=== PATIENT | male | born 1950 | race Caucasian/White ===

== ENCOUNTER 2019-01-28 05:43 | Inpatient (IN) ==
[2019-01-20 18:30] LABS: Appearance,Urine CLEAR; Bacteria,Urine 0 /hpf (0); Bilirubin,Urine NEG (NEG); Color,Urine STRAW; Culture Indicated,Urine NO; Glucose,Urine (UA) NEGATIVE (NEG); Ketones,Urine NEG (NEG); Leukocyte Esterase,Urine NEG /uL (NEG); Nitrate,Urine NEG (NEG); Protein,Urine NEG (NEG); Specific Gravity,Urine 1.012 (1.000-1.035); Urine Amorphous Crystals FEW /hpf (0); Urine Blood 0.03 mg/dL (<0.03); Urine RBC 16 /hpf (0-1); Urine Squamous Epithelial Cell 0 /hpf (0-4); Urine WBC 1 /hpf (0-4); Urobilinogen,Urine NEG (NEG)
[2019-01-20 18:37] LABS: Basophils # (Auto) 0 K/mcL (0.0-0.3); Basophils % (Auto) 0.7 % (0.0-2.0); Blood Urea Nitrogen 16 mg/dl (8-23); Calcium 8.9 mg/dl (8.6-10.4); Carbon Dioxide 25 mmol/L (22-30); Chloride 102 mmol/L (96-108); Eosinophils # (Auto) 0.4 K/mcL (0.0-0.7); Eosinophils % (Auto) 6.3 % (0.0-7.0); Glomerular Filtration Rate 55; Glucose 89 mg/dL (70-105); Granulocytes % (Auto) 58.1 % (38.0-78.0); Hematocrit 45.9 % (41.0-55.0); Hemoglobin 15.4 g/dL (13.5-16.5); Lymphocytes # (Auto) 1.6 K/mcL (1.5-4.8); Lymphocytes % (Auto) 26.9 % (15.5-49.0); Mean Cell Volume 92.6 fL (80.0-100.0); Mean Corpuscular HGB Conc 33.6 g/dL (31.0-36.0); Mean Platelet Volume 8.9 fL (7.4-10.4); Monocytes # (Auto) 0.5 K/mcL (0.1-0.9); Platelet Count 290 K/mcL (140-440); RBC 4.96 M/mcL (4.50-5.90)
[2019-01-28] MEDS ORDERED: PREGABALIN 75 MG CAPSULE PO SCH (06:00)
[2019-01-28] MEDS ORDERED: CELECOXIB 200 MG CAPSULE PO SCH (06:00)
[2019-01-28] MEDS ORDERED: oxyCODONE 10 MG TAB.ER.12H PO SCH (06:00)
[2019-01-28] MEDS ORDERED: ceFAZolin 2 GM in DEXTROSE 5% IN WATER 50 ML IV SCH (06:00)
[2019-01-28 07:21] LABS: Estimated Average Glucose(eAG) 103 mg/dL; Hemoglobin A1C 5.2 % HGB (4.0-6.0)
[2019-01-28] MEDS ORDERED: PROPOFOL 200 MG/20 ML VIAL IV ONE (09:45)
[2019-01-28] MEDS ORDERED: ONDANSETRON 4 MG/2 ML VIAL IV ONE (09:45)
[2019-01-28] MEDS ORDERED: DEXAMETHASONE 10 MG/ML VIAL IV ONE (09:45)
[2019-01-28] MEDS ORDERED: SUCCINYLCHOLINE 20 MG/ML ML IV ONE (09:45)
[2019-01-28] MEDS ORDERED: GLYCOPYRROLATE 0.2 MG/ML VIAL IV ONE (09:45)
[2019-01-28] MEDS ORDERED: MIDAZOLAM 5 MG/5 ML VIAL IV ONE (09:45)
[2019-01-28] MEDS ORDERED: LIDOCAINE HCL/PF 100 MG/5 ML SYRINGE IV ONE (09:45)
[2019-01-28] MEDS ORDERED: fentaNYL 250 MCG/5 ML VIAL IV ONE (09:45)
[2019-01-28] MEDS ORDERED: ROPIVACAINE HCL/PF 30 ML VIAL IJ ONE (09:45)
[2019-01-28] MEDS ORDERED: PHENYLEPHRINE 10 MG/ML VIAL IV ONE (09:45)
[2019-01-28] MEDS ORDERED: SUGAMMADEX SODIUM 200 MG/2 ML VIAL IV ONE (09:45)
[2019-01-28] MEDS ORDERED: ROCURONIUM 10 MG/ML ML IV ONE (09:45)
[2019-01-28] MEDS ORDERED: TRANEXAMIC ACID 1,000 MG/10 ML VIAL IV ONE (09:45)
[2019-01-28] MEDS ORDERED: IPRATROPIUM/ALBUTEROL 3 ML AMPUL.NEB NEB PRN (10:41)
[2019-01-28] MEDS ORDERED: NALOXONE HCL 0.4 MG/ML VIAL IV PRN (10:41)
[2019-01-28] MEDS ORDERED: METHOCARBAMOL 1,000 MG/10 ML VIAL IV PRN (10:41)
[2019-01-28] MEDS ORDERED: ACETAMINOPHEN 1,000 MG/100 ML BOTTLE IV ONE (10:41)
[2019-01-28] MEDS ORDERED: BENZOCAINE/MENTHOL 1 LOZENGE PO PRN ×2 (10:41→11:14)
[2019-01-28] MEDS ORDERED: LACTATED RINGERS 250 ML IV PRN (10:41)
[2019-01-28] MEDS ORDERED: ONDANSETRON 4 MG/2 ML VIAL IV PRN ×2 (10:41→11:14)
[2019-01-28] MEDS ORDERED: FLUMAZENIL 0.1 MG/ML ML IV PRN (10:41)
[2019-01-28] MEDS ORDERED: LACTATED RINGERS 1,000 ML IV SCH (10:45)
--- NOTE | 2019-01-28 11:13 | Brief Operative Note ---
Date of procedure: 01/28/19 Pre-op diagnosis: Right shoulder DJD, SLAP tear Post-op diagnosis: same Procedure: 1)Right total shoulder arthroplasty 2)Biceps tenodesis Grafts/Implants: Yes (Tornier 48x16 resurfacing, medium 35 glenoid) Anesthesia: GETA Findings: arthritis, SLAP tear Complications: none Surgeon: Favio Dotson Machine Adjuster: Laurent Rivera Estimated blood loss (cc): 100 Specimens Removed/Pathology: none sent Condition: stable Disposition: PACU
[2019-01-28] MEDS ORDERED: BISACODYL 10 MG SUPP.RECT PR PRN (11:14)
[2019-01-28] MEDS ORDERED: KETOROLAC 15 MG/ML VIAL IV PRN (11:14)
[2019-01-28] MEDS ORDERED: MAGNESIUM HYDROXIDE 30 ML ORAL.SUSP PO PRN (11:14)
[2019-01-28] MEDS ORDERED: FLEETS ADULT ENEMA PR PRN (11:14)
[2019-01-28] MEDS ORDERED: TRANEXAMIC ACID 1,000 MG/10 ML VIAL IV SCH (11:14)
[2019-01-28] MEDS ORDERED: POLYETHYLENE GLYCOL 3350 17 GM PACKET PO PRN (11:14)
[2019-01-28] MEDS: fentaNYL 100 MCG/2 ML VIAL IV PRN ×4 (11:49→12:20)
--- NOTE | 2019-01-28 12:11 | XRay Report ---
CLINICAL INFORMATION: Post-OP Total Shoulder COMPARISON: None. FINDINGS: Shoulder prosthesis is anatomically aligned. Sagittally oriented osteotomy versus fracture through the anterior humeral anatomic neck appreciated. Soft tissue swelling noted. IMPRESSION: Shoulder prosthesis in anatomic position. Interpreted and Authenticated by: Yandel Hein 01/28/19
[2019-01-28] MEDS ORDERED: KETOROLAC 15 MG/ML VIAL IV ONE (12:28)
[2019-01-28] MEDS: HYDROmorphone 2 MG/ML VIAL IV PRN ×4 (12:50→21:29)
[2019-01-28] MEDS: 0.9 % SODIUM CHLORIDE 1,000 ML IV SCH ×2 (12:50→21:29)
[2019-01-28] MEDS: 0.9 % SODIUM CHLORIDE 10 ML SYRINGE IV SCH ×2 (12:58→20:30)
[2019-01-28] MEDS: oxyCODONE/APAP 5/325MG TABLET PO PRN ×3 (14:00→22:52)
[2019-01-28] MEDS: ceFAZolin 1 GM VIAL IV SCH ×2 (17:45→23:35)
[2019-01-28] MEDS: DOCUSATE SODIUM 100 MG CAPSULE PO SCH (20:29)
[2019-01-28] MEDS ORDERED: SENNOSIDES 1 TABLET PO SCH (21:00)
[2019-01-29] MEDS: HYDROmorphone 2 MG/ML VIAL IV PRN (01:56)
[2019-01-29] MEDS: oxyCODONE/APAP 5/325MG TABLET PO PRN ×3 (03:56→12:13)
[2019-01-29] MEDS: 0.9 % SODIUM CHLORIDE 10 ML SYRINGE IV SCH (05:23)
--- NOTE | 2019-01-29 07:00 | Discharge Summary ---
Providers - Providers Patient information: Note initiated : 01/29/19 at 6:58 am Service Date, if different from initiated Date: [] Patient: Breezy Lua 69 y/o M admitted on 01/28/19 for Right Resurfacing Total Shoulder Arthroplasty with. Chief Complaint: [] Discharge date: 01/29/19 Hospitalization Hospital course: Pt was admitted for a R TSA. Pt admitted on the day of admission. Pt spent one night on the floor for IV abx, IV pain meds and PT. Discharged on post-op day 1. F/u in 2 weeks. Discharge diagnosis: R shoulder OA Exam - Exam Clean and dry: Yes Weight bearing status: none Ortho Discharge - TSA - Patient Instructions Diet: Regular Diet Activity: activity as tolerated Total Shoulder Protocol: Leave immobilizer in place except for bathing and ROM. Abduction pillow. Continue to wear sling until seen by physician. Codman Pendulum : These exercises use momentum produced by your body to move your shoulder joint. Bend your knees and shift your weight to your front leg, then back, allowing your arm to swing in the same directions. Using the same technique, alternately shift your weight between your right and left legs, allowing your arm to swing from side to side. These exercises are also performed in counterclockwise and clockwise circular motions. Typically these exercises are performed several times per day, for a set number repetitions or minutes, such as 20 times in a row or 5 minutes at a time. Dressing Care: May shower in 2 days - Follow Up Plan Disposition: Home, Self-Care Prognosis: Good Rehab Potential: Good Overall status at discharge: patient is back to baseline - Orders For Discharge Prescriptions: HYDROcodone/ACETAMINOPHEN [[place] 10-325 Tablet] 1 - 2 tab PO Q4 #75 tab Pending Studies Resuscitation Status Do Not Resuscitate Diet Regular Diet Start SatJan 28 1612 Docusate Sodium (Colace) 100 mg PO BID SWETHA Last Admin: 01/28/19 20:29 Dose: 100 mg Documented by: DEE Hydromorphone HCl (Dilaudid) 0 mg IV Q2HP PRN PRN Reason: PAIN LEVEL > 6 Last Admin: 01/29/19 01:56 Dose: 0.5 mg Documented by: Admin: 01/28/19 21:29 Dose: 0.5 mg Documented by: Admin: 01/28/19 15:51 Dose: 1 mg Documented by: Admin: 01/28/19 13:33 Dose: 1 mg Documented by: Admin: 01/28/19 12:50 Dose: 1 mg Documented by: RYDER Sodium Chloride (Sodium Chloride 0.9%) 1,000 mls @ 100 mls/hr IV .Q10H [facility] Last Admin: 01/28/19 21:29 Dose: 100 mls/hr Documented by: Infusion: 01/28/19 21:29 Dose: 100 mls/hr Documented by: Admin: 01/28/19 12:50 Dose: 100 mls/hr Documented by: RYDER Oxycodone/Acetaminophen (Percocet 5-325 Mg) 0 tab PO Q4HP PRN PRN Reason: PAIN LEVEL 3-6 Last Admin: 01/29/19 03:56 Dose: 2 tab Documented by: Admin: 01/28/19 22:52 Dose: 2 tab Documented by: Admin: 01/28/19 18:21 Dose: 2 tab Documented by: Admin: 01/28/19 14:00 Dose: 2 tab Documented by: RYDER Senna (Senokot) 2 tab PO HS [facility] Last Admin: 01/28/19 20:29 Dose: 2 tab Documented by: DEE Sodium Chloride (Saline Flush) 10 ml IV Q8 [facility] Last Admin: 01/29/19 05:23 Dose: Not Given Documented by: Admin: 01/28/19 20:30 Dose: 10 ml Documented by: Admin: 01/28/19 12:58 Dose: Not Given Documented by: RYDER Shift Summary 01/29/19 03:10 Shift Summary by Tonia Trinh a/o x4, ambulatory with sba,dressing to rt shoulder c/d/i, immobilizer sling in use, able to wiggle his fingers well, good capillary refill, denies tingling or numbness, has tolerated food and fluids well, voiding via urinal with no difficulty, no bm this shift, has walked to and from bathroom, have alternated iv Dilaudid 0.5 mg with po pain meds, pain between 3/10 to 7/10 on pain scale., ivf ns at 100 cc/hr to left fa, patient is a DNR, Initialized on 01/29/19 03:10 - END OF NOTE
--- NOTE | 2019-01-29 07:56 | Operative Note ---
DATE OF OPERATION: 01/28/2019 PREOPERATIVE DIAGNOSIS: Right shoulder degenerative joint disease and SLAP tear. POSTOPERATIVE DIAGNOSIS: Right shoulder degenerative joint disease and SLAP tear. PROCEDURE PERFORMED: 1. Total shoulder arthroplasty, placing a Tornier rian 48 x 16 resurfacing labral component and medium 35 glenoid component. 2. Biceps tenodesis. SURGEON: Favio Dotson MD FELTMAKER AND WEIGHER: Mor Rivera PA-C. The PA's assistance was required for the safe and efficient completion of the entire case. This provider's expertise and technical skill were required throughout the case. The PA assisted with preoperative coordination, intraoperative retraction, wound closure, dressing and splint application, as well as postoperative documentation and care coordination. ANESTHESIA: General. DRAINS: None. SPECIMENS: None. COMPLICATIONS: None. BLOOD LOSS: 150 mL POSTOPERATIVE CONDITION: Stable. INDICATIONS FOR SURGERY: He is a 69-year-old who was having shoulder pain, no longer managed with conservative treatment. X-rays showed osteophytes and joint space narrowing. I believe he also had an MRI which showed SLAP tear. FINDINGS AT SURGERY: There was a large full thickness cartilage defect off the humeral head with osteophytes. There was also some retrained suture material on the anterior glenoid consistent with prior surgical procedure. Post-implantation showed component position and stability. PROCEDURE IN DETAIL: The patient had been seen preoperatively. Informed consent had been obtained after discussion of risks and benefits of surgery. Risks including, but not limited to, bleeding, possibly requiring transfusion; infection, possibly requiring prolonged IV antibiotics; injury to nerves, blood vessels other surrounding structures; anesthetic risks; incomplete or no resolution of symptoms; stiffness; instability, weakness; possibility of needing further revision surgery. He understood these risks and wished to proceed. Correct operative site was marked. The patient was taken to the operating room and general anesthesia induced. He was carefully positioned in the beach chair position and pressure points carefully padded. Right shoulder and upper extremity were then carefully prepped and draped in normal sterile fashion. A timeout was performed verifying patient name, operative site, and plan. Ioban was used to cover skin surfaces and a standard deltopectoral incision was made with scalpel through skin and subcutaneous tissue. Hemostasis was obtained with Bovie cautery. IrriSept was irrigated and then careful blunt dissection was taken onto the cephalic vein and this was dissected carefully laterally with the deltoid. As we dissected bluntly through the deltopectoral interval. The subdeltoid space was finger dissection and then a deltoid retractor placed. The lateral region of the conjoint tendon was identified and blue handle retractor was placed underneath. We palpated the biceps exiting from underneath the pec and we unroofed this. We then used a curved [place] scissors to amputate the biceps. A large curved osteotome was used to perform a lesser tuberosity osteotomy to detach the subscapularis. We then started externally rotating the arm, releasing capsule around the inferior medial neck until we were able to dislocate the humeral head out anteriorly. A curved osteotome was used to remove osteophytes. We then noted also the large cartilage defect off the humeral head. We then subluxed the humeral head posteriorly to expose the glenoid. The labrum, what remained was excised as well as some of the suture material anteriorly. Once we had adequate exposure, we then used the sizing guide to figure out the best fit. It looked like a medium 35, so we went ahead and placed our guidepin using the guide. We then reamed until we had contacted bone circumferentially and then we used a central peg reamer. We then removed the guide pin and placed the peripheral peg drill guide and drilled our three peripheral pegs. We trialled component, which fit well, so we went ahead and opened a medium 35. 1 mL of DBX was placed in the flutes of the central peg. Cement was mixed. We irrigated the joint with IrriSept, after that pulse lavaged with saline and then used a syringe to inject the cement into the three peripheral peg holes pressurizing them, and impacted the definitive implant until it was fully seated. We held everything still until cement had fully hardened. I then redislocated the humeral head out anteriorly. We sized we thought initially to a 50, used the guide to place a central pin and then reamed with the 50 reamer. However, it appeared we were not contacting bone quite adequately so I went ahead and downsized to a 48 and reamed which fit much better, so we opened a 48 x 16 with Rian resurfacing humeral component. We cruciate punched over the guidepin and then removed this. We irrigated copiously with IrriSept, then waited a minute, and then pulse lavaged copiously with saline. We then impacted the implant until it was fully seated. We checked stability and it subluxed posteriorly 50% with good range of motion. We placed drill holes in the bicipital groove and used #2 FiberWire [id number] over top of the osteotomized lesser tuberosity to repair our subscap. We also placed several [id number] in the rotator interval. He did have a small rotator cuff tear there as well which we repaired. We then tenodesed the biceps with #1 Vicryl stitch and amputated the proximal stump. We irrigated IrriSept again, after a minute pulse lavaged with saline and closed the deltopectoral interval with a running #1 Vicryl and 2-0 Monocryl was used for subcutaneous and then josh for skin. Xeroform sterile dressing applied. Arm was placed in an abductor immobilizer. The patient was awakened, extubated, and transferred to recovery in stable condition. BJB:adrienne Job ID: [id number] Doc ID: [id number] Favio Dotson MD
[2019-01-29] MEDS: DOCUSATE SODIUM 100 MG CAPSULE PO SCH (08:07)
[2019-01-29] MEDS: 0.9 % SODIUM CHLORIDE 1,000 ML IV SCH (08:08)
== END 2019-01-29 12:22 | disposition home or self-care (01) | DRG 483 ==
LOC: MEDSUR 05:43
PROVIDERS: ADMIT Orthopaedic Surgery; ATTEND Orthopaedic Surgery